=== PATIENT | female | born 1975 ===

== ENCOUNTER 2016-08-01 15:41 | Emergency (ER) | payer OTHER ==
[2016-08-01 16:00] VITALS: RESP 16
[2016-08-01 16:32] LABS: BASOPHILS % (AUTO) 0 % (0-3); EOSINOPHILS % (AUTO) 4 % (0-9); HEMATOCRIT 39 % (35-47); MEAN CORPUSCULAR HGB CONC 30.4 gm/dl (32.0-36.0); MONOCYTES % (AUTO) 5.9 % (0-12); NEUTROPHILS % (AUTO) 66.2 % (37-80)
[2016-08-01 16:36] LABS: MEAN CORPUSCULAR VOLUME 72 fL (81-99)
[2016-08-01 16:43] LABS: CALCIUM 8.7 mg/dl (8.5-10.1); POTASSIUM 4.1 mMol/L (3.5-5.1)
[2016-08-01 16:48] VITALS: TEMP 98.2; O2SAT 96
[2016-08-01 16:49] LABS: OVALOCYTES PRESENT; TARGET CELLS PRESENT; TEAR DROP CELLS PRESENT
[2016-08-01 17:08] LABS: APPEARANCE,URINE Clear; BILIRUBIN,URINE NEGATIVE (NEGATIVE); COLOR,URINE Yellow; GLUCOSE, URINE (UA) NEGATIVE (NEGATIVE); KETONES,URINE NEGATIVE (NEGATIVE); LEUKOCYTE ESTERASE ,URINE 1+ (NEGATIVE); NITRATE,URINE NEGATIVE (NEGATIVE); OCCULT BLOOD,URINE 2+ (NEG-TRACE); PH,URINE 6.5; UROBILINOGEN,URINE 0.2 (0.2-1.0 EU)
[2016-08-01 17:24] VITALS: BP 118/89; PULSE 120
== END 2016-08-01 18:06 | disposition home or self-care (01) ==
LOC: ED 15:41
DX: N39.0 Urinary tract infection, site not specified (principal)
CPT/HCPCS: 36415; 74176; 80048; 81001; 85025; 87804; 99283

== ENCOUNTER 2018-11-10 14:06 | Emergency (ER) | payer OTHER ==
[2018-11-10] MEDS ORDERED: KETOROLAC TROMETHAMINE 30 MG/ML SOL IV ONE (14:47)
[2018-11-10] MEDS ORDERED: HYDROMORPHONE 1 MG/ML SYRINGE IV PRN ×2 (14:47→17:42)
[2018-11-10 15:17] LABS: BASOPHILS % (AUTO) 0 % (0-3); EOSINOPHILS % (AUTO) 3 % (0-9); HEMATOCRIT 38 % (35-47); HEMOGLOBIN 11.4 gm/dl (12.0-15.5); LYMPHOCYTES % (AUTO) 23.9 % (10-50); MEAN CORPUSCULAR HEMOGLOBIN 21.1 pg (27.0-32.0); MEAN CORPUSCULAR HGB CONC 29.8 gm/dl (32.0-36.0); MONOCYTES % (AUTO) 3.5 % (0-12); NEUTROPHILS % (AUTO) 69.5 % (37-80)
[2018-11-10] MEDS ORDERED: KETOROLAC TROMETHAMINE 30 MG/ML SOL ONE (15:18)
[2018-11-10 15:23] LABS: CARBON DIOXIDE 24.6 mEq/L (21-32); CREATININE 1.08 mg/dl (0.60-1.00); POTASSIUM 4.2 mMol/L (3.5-5.1)
[2018-11-10 15:23] LABS: APPEARANCE,URINE Slightly Cloudy; BILIRUBIN,URINE NEGATIVE (NEGATIVE); COLOR,URINE Yellow; GLUCOSE, URINE (UA) NEGATIVE (NEGATIVE); KETONES,URINE NEGATIVE (NEGATIVE); LEUKOCYTE ESTERASE ,URINE 2+ (NEGATIVE); NITRATE,URINE NEGATIVE (NEGATIVE); OCCULT BLOOD,URINE 1+ (NEG-TRACE); UROBILINOGEN,URINE 0.2 (0.2-1.0 EU)
[2018-11-10 15:25] LABS: MEAN CORPUSCULAR VOLUME 71 fL (81-99)
[2018-11-10 15:26] VITALS: TEMP 97.9; O2SAT 99
[2018-11-10 15:35] LABS: BACTERIA 2+ (< 1+); CRYSTALS NEGATIVE (0-3 AVE/HPF); EPITHELIAL CELLS 0-2 (SQUAMOUS); RBC,URINE 0-2 (0-3AV/HPF)
[2018-11-10 15:55] LABS: ANISOCYTOSIS SLIGHT AMT; OVALOCYTES PRESENT; POIKILOCYTOSIS SLIGHT AMT
[2018-11-10] MEDS ORDERED: CEFTRIAXONE 1 GM PDS 1 GM in SODIUM CHLORIDE 0.9% 50 ML 50 ML IV ONE (16:04)
[2018-11-10] MEDS ORDERED: CEFTRIAXONE 1 GM PDS ONE (16:09)
[2018-11-10] MEDS ORDERED: HYDROMORPHONE 1 MG/ML SYRINGE ONE ×2 (16:16→17:43)
[2018-11-10] MEDS ORDERED: SODIUM CHLORIDE 0.9% 50 ML 25 ML IV PRN (16:31)
[2018-11-10] MEDS: SODIUM CHLORIDE 0.9% FLUSH 10 ML SOL IV PRN ×2 (16:58→17:45)
[2018-11-10 17:00] VITALS: BP 141/72; PULSE 69; RESP 16
== END 2018-11-10 18:00 | disposition home or self-care (01) ==
LOC: ED 14:06
DX: N10 Acute pyelonephritis (principal); M54.9 Dorsalgia, unspecified
CPT/HCPCS: 74176; 80048; 81001; 84703; 85025; 87077; 87088; 87186; 96365; 96374; 96375; 99283; 99285; J0696; J1885; J1170

== ENCOUNTER 2018-11-22 18:07 | Emergency (ER) | payer OTHER ==
[2018-11-22] MEDS ORDERED: SODIUM CHLORIDE 0.9% 1000ML 1,000 ML IV ONE ×2 (18:27→20:01)
[2018-11-22] MEDS ORDERED: CEFTRIAXONE 1 GM PDS 1 GM in SODIUM CHLORIDE 0.9% 50 ML 50 ML IV SCH (18:30)
[2018-11-22] MEDS ORDERED: SODIUM CHLORIDE 0.9% FLUSH 10 ML SOL IV PRN (18:33)
[2018-11-22 18:48] LABS: BASOPHILS % (AUTO) 0 % (0-3); EOSINOPHILS % (AUTO) 3 % (0-9); HEMATOCRIT 34 % (35-47); HEMOGLOBIN 10.1 gm/dl (12.0-15.5); LYMPHOCYTES % (AUTO) 22.4 % (10-50); MEAN CORPUSCULAR HEMOGLOBIN 21.5 pg (27.0-32.0); MEAN CORPUSCULAR HGB CONC 29.7 gm/dl (32.0-36.0); MONOCYTES % (AUTO) 3.4 % (0-12); NEUTROPHILS % (AUTO) 71.2 % (37-80)
[2018-11-22 18:54] LABS: MEAN CORPUSCULAR VOLUME 73 fL (81-99)
[2018-11-22 19:02] LABS: ALBUMIN 2.5 gm/dl (3.4-5.0); BILIRUBIN,TOTAL 0.1 mg/dl (0.2-1.0); CARBON DIOXIDE 21.9 mEq/L (21-32); CREATININE 1.01 mg/dl (0.60-1.00); TOTAL PROTEIN 7.1 gm/dl (6.4-8.2)
[2018-11-22] MEDS ORDERED: ACETAMINOPHEN 500 MG 500 MG TAB PO ONE (19:15)
[2018-11-22] MEDS ORDERED: KETOROLAC TROMETHAMINE 30 MG/ML SOL IV ONE (19:15)
[2018-11-22] MEDS ORDERED: ACETAMINOPHEN 500 MG 500 MG TAB ONE (19:25)
[2018-11-22] MEDS ORDERED: KETOROLAC TROMETHAMINE 30 MG/ML SOL ONE (19:25)
[2018-11-22] MEDS ORDERED: CEFTRIAXONE 1 GM PDS ONE (19:25)
[2018-11-22 20:11] VITALS: RESP 16
[2018-11-22] MEDS ORDERED: APAP/HYDROCODONE 1 EACH TABLET PO ONE (20:43)
[2018-11-22] MEDS ORDERED: APAP/HYDROCODONE 1 EACH TABLET ONE (20:52)
[2018-11-22 21:33] VITALS: TEMP 96.9; O2SAT 98
[2018-11-22] MEDS ORDERED: HYDROMORPHONE 1 MG/ML SYRINGE IV ONE (21:36)
[2018-11-22] MEDS ORDERED: HYDROMORPHONE 1 MG/ML SYRINGE ONE (21:37)
[2018-11-22 21:56] VITALS: BP 136/79; PULSE 91
[2018-11-22 23:01] LABS: HYPOCHROMASIA SLIGHT AMT
[2018-11-22 23:02] LABS: ANISOCYTOSIS SLIGHT AMT
== END 2018-11-22 22:35 | disposition home or self-care (01) ==
LOC: ED 18:07
DX: N39.0 Urinary tract infection, site not specified (principal)
CPT/HCPCS: 36415; 74176; 80053; 83605; 85025; 87040; 87088; 96365; 96366; 96374; 96375; 99070; 99283; 99285; J0696; J1885; A9270-GY; J1170